=== PATIENT | male | born 1945 | race Caucasian/White ===

== ENCOUNTER → 2017-07-19 | Outpatient (CLI) | payer OTHER, MEDICARE ==
[~2017-07-19] MED LIST: ALDACTONE25 MG PO; ASPIR 8181 MG PO; ATORVASTATIN CA40 MG PO; CARVEDILOL12.5 MG PO; CLOPIDOGREL; COLACE100 MG PO; COREG3.125 MG PO; COUMADIN 3 MG TA3 M1 PO; COUMADIN 5 MG TA5 M1 PO; DEMADEX20 MG PO; IMDUR 60 MG TAB60 M1 PO; IRON325 PO; KLOR-CON 1010 MEQ PO; LASIX 40 MG TAB40 M2 PO; LIDODERM 5%1 PATC1 TRANSDERM; METFORMIN HCL500 MG PO; METHADONE HCL 110 M1 PO; METHADONE HCL5 MG PO; METOLAZONE 2.52.5 MG PO; NEURONTIN 300300 M1 PO; NORCO 10-325 T1 EACH PO; NOVOLIN 70100 UNIT/1 SQ; PACERONE 200 M200 M1 PO; PLAVIX 75 MG TA75 M1 PO; PULMICORT0.5 MG/22 INH; TRICOR145 MG PO; TUMERIC/CURCUMIN; ZANAFLEX4 MG PO
--- NOTE | 2017-07-21 08:15 | PAINCON ---
[address] [address] PAIN MANAGEMENT CONSULTATION Name: ELBA HAMPTON [id number] Admission: 07/19/17 Attend Phys: Erlinda Pena Discharge: Date of : 45 Report #: [id number] THIS REPORT FOR: //name// CC: Corinna Frias The patient is a 72-year-old gentleman, being treated for lumbar radiculopathy, axial back pain, component of cervical radiculopathy. Last seen in the pain clinic on 06/03/2017, continued on methadone 5 mg at bedtime, hydrocodone 10/325 p.r.n., limit 90 tablets for 60 days. He returns to pain clinic today noting medications are providing sufficient analgesia to participate in activities of daily living. Continues taking methadone 5 mg at bedtime, hydrocodone 10/325 one tablet 2 or 3 times a day, typically 45 tablets for 30 days. PHYSICAL EXAMINATION: Rates the pain as 3 on a VAS. Little drowsy today, took his pain medicine this morning, but he is easily arousable, alert and oriented. VITAL SIGNS: Blood pressure is 155/58, pulse of 77, respirations 20, 5 feet 8 inches, 249 pounds. Moderately obese with a BMI of 38.1 kilograms per meter squared, oxygen at 3 liters nasal cannula yields a saturation of 92%. NECK: Hurting worst due to a fall on Monday. He hit his head on the toilet. States his legs "gave out." No ER visit. EXTREMITIES: Physical exam today shows lower extremity strength generally symmetric, some diffuse axial tenderness in the back. No discrete trigger points are noted. Cervical paravertebral muscles were a little tender, perhaps tight, but no trigger points noted. No obvious trauma to the head. EYES: Again pupils are reactive. Extraocular muscles are intact. No nystagmus noted. ASSESSMENT: Chronic axial back pain, lumbar radiculopathy by history, stable on baseline, low dose opiate analgesics. RECOMMENDATION: Continue methadone 5 mg at bedtime, hydrocodone 10/325, limit 90 tablets for 60 days. Follow up in 2 months for reevaluation, earlier if needed. <ELECTRONICALLY SIGNED> By: Tenzin Frias DO 07/21/17 0815 0830 [id number] Frias DO /nt
== END ==
LOC: M.PC 02:04
DX: M54.16 Radiculopathy, lumbar region (principal); M54.12 Radiculopathy, cervical region; M54.89 Other dorsalgia; R20.0 Anesthesia of skin; F19.90 Other psychoactive substance use, unspecified, uncomplicated